=== PATIENT | male | born 1940 | race Caucasian/White ===

== ENCOUNTER 2017-12-15 09:39 | Observation (INO) | payer MEDICARE, BC ==
[2017-12-13 12:55] VITALS: BP 109/70
[~2017-12-15] VITALS: Ht 188 cm; Wt 86.5 kg
[~2017-12-15 09:39] MED LIST: DEXL60CA2 PO
[2017-12-15] MEDS ORDERED: LACTATED RINGERS 1,000 ML IV SCH ×3 (10:02→20:00)
[2017-12-15] MEDS ORDERED: BUPIVACAINE/PF 0.5% ONE (10:28)
[2017-12-15] MEDS ORDERED: PROPOFOL 10 MG/ML, 20ML ONE (11:45)
[2017-12-15] MEDS ORDERED: LIDOCAINE-MPF 2% ,5ML ONE (11:45)
[2017-12-15] MEDS ORDERED: ROCURONIUM 10 MG/ML,10ML ONE (11:45)
[2017-12-15] MEDS ORDERED: CEFAZOLIN 1,000 MG ONE ×2 (11:59)
[2017-12-15] MEDS ORDERED: OXYcodone 5 MG/5 ML ORAL.SOL UDC PO PRN (12:00)
[2017-12-15] MEDS ORDERED: HYDROcodone/APAP 7.5-325MG/15ML UDC PO PRN (12:00)
[2017-12-15] MEDS ORDERED: ONDANSETRON 2MG/ML, 2ML ONE ×2 (12:00→12:41)
[2017-12-15] MEDS ORDERED: ACETAMINOPHEN 325 MG TABLET PO PRN (12:00)
[2017-12-15] MEDS ORDERED: DEXAMETHASONE 4 MG/ML, 1ML ONE ×2 (12:00)
[2017-12-15] MEDS ORDERED: MEPERIDINE/PF 25MG/0.5ML IVPush PRN (12:00)
[2017-12-15] MEDS ORDERED: ONDANSETRON 2MG/ML, 2ML IVPush PRN ×2 (12:00→17:30)
[2017-12-15] MEDS ORDERED: FENTANYL PF 100 MCG/2ML ONE ×2 (12:02→12:44)
[2017-12-15] MEDS ORDERED: BUPIVACAINE/PF-EPI 0.5% 1:200K INFIL ONE (12:08)
[2017-12-15] MEDS ORDERED: EPHEDRINE 50 MG/ML, 1ML ONE (12:13)
[2017-12-15] MEDS ORDERED: GLYCOPYRROLATE 0.2MG/1ML, 5ML ONE (12:19)
[2017-12-15] MEDS ORDERED: NEOSTIGMINE 1 MG/ML, 10ML ONE (12:19)
[2017-12-15] MEDS ORDERED: ACETAMINOPHEN 650 MG/20.3 ML UDC ONE (12:41)
[2017-12-15] MEDS ORDERED: OXYcodone 5 MG/5 ML ORAL.SOL UDC ONE ×2 (12:42→13:04)
[2017-12-15] MEDS: FENTANYL PF 100 MCG/2ML IV PRN ×2 (12:45→12:52)
[2017-12-15] MEDS ORDERED: morphine SULFATE 10 MG/ML, 1ML ONE (13:08)
[2017-12-15] MEDS: morphine SULFATE 10 MG/ML, 1ML IV PRN ×3 (13:10→13:25)
[2017-12-15] MEDS ORDERED: KETOROLAC 30 MG/1 ML ONE (13:57)
[2017-12-15] MEDS ORDERED: KETOROLAC 30 MG/1 ML IVPush ONE (14:00)
[2017-12-15] MEDS ORDERED: SCOPOLAMINE PATCH, 1.5MG PATCH.TD72 TD ONE (15:30)
[2017-12-15] MEDS ORDERED: PROMETHAZINE 12.5 MG SUPP PR ONE (15:30)
[2017-12-15] MEDS ORDERED: OXYcodone/APAP 5/325MG TABLET PO PRN (17:30)
[2017-12-15 19:08] VITALS: BP 117/72
[2017-12-15] MEDS ORDERED: MORPHINE SULFATE 4 MG/ML, 1ML IVPush PRN (20:00)
[2017-12-16 00:21] VITALS: BP 106/66
[2017-12-16 07:05] VITALS: BP 110/69
[2017-12-16] MEDS ORDERED: LACTATED RINGERS 1,000 ML IV SCH (20:00)
== END 2017-12-16 08:58 | disposition home or self-care (01) ==
LOC: OUT 09:39 → ORIP 17:19 → 3NW 18:53
PROVIDERS: ADMIT Surgery; ATTEND Surgery
DX: K81.1 Chronic cholecystitis (principal); K82.4 Cholesterolosis of gallbladder; Z87.891 Personal history of nicotine dependence; Z82.49 Family history of ischemic heart disease and other diseases of the circulatory system
CPT/HCPCS: 47562; 88304; 93005; G0378; J0690; J1100; J1885; J2270; J2405; J2704; J2710; J3010; J3490; J7120